=== PATIENT | male | born 1980 | race Caucasian/White ===

== ENCOUNTER 2019-03-25 22:15 | Inpatient (IN) | payer MEDICAID, OTHER ==
[~2019-03-25] VITALS: Ht 167.6 cm; Wt 53.1 kg
[2019-03-25 23:40] LABS: BASOPHILS % (AUTO) 0.6 % (0.0-2.0); EOSINOPHILS % (AUTO) 1.2 % (1.0-6.0); HEMATOCRIT 45.4 % (41-53); HEMOGLOBIN 15.4 g/dL (13.5-17.5); LYMPHOCYTES # (AUTO) 1.5 K/uL (1.0-4.8); LYMPHOCYTES % (AUTO) 17.2 % (22.0-44.0); MEAN CORPUSCULAR HEMOGLOBIN 30.6 pg (26.0-34.0); MEAN CORPUSCULAR HGB CONC 33.8 G/dL (31.0-37.0); MEAN CORPUSCULAR VOLUME 91 fL (80-100); MONOCYTES # (AUTO) 0.8 K/uL (0.1-1.0); MONOCYTES % (AUTO) 9.3 % (2.0-9.0); NEUTROPHILS # (AUTO) 6.1 K/uL (1.8-7.7); NEUTROPHILS % (AUTO) 71.7 % (40.0-70.0); PLATELET COUNT (AUTO) 294 K/uL (150-450); RED BLOOD CELL COUNT(AUTO) 5.02 MIL/uL (4.50-5.90); RED CELL DISTRIBUTION WIDTH 12.8 % (11.5-14.5)
[2019-03-25 23:48] LABS: ANION GAP 10 mmol/L (8-16); CARBON DIOXIDE 26 mmol/L (22-29); CHLORIDE 105 mmol/L (98-107); CREATININE 0.93 mg/dL (0.60-1.30); GLOMERULAR FILTR. RATE CALC > 60 mL/min (>60); GLUCOSE,RANDOM 91 mg/dL (70-110); POTASSIUM 3.3 mmol/L (3.5-5.1); SODIUM SERUM 141 mmol/L (136-145); UREA NITROGEN, BLOOD 11 mg/dL (7-18)
[2019-03-25 23:48] LABS: AMPHET/METH SCREEN,URINE NEGATIVE (NEGATIVE); BARBITURATE SCREEN, URINE NEGATIVE (NEGATIVE); BENZODIAZEPINES SCREEN,URINE NEGATIVE (NEGATIVE); CANNABINOID SCREEN,URINE POSITIVE (NEGATIVE); COCAINE SCREEN,URINE POSITIVE (NEGATIVE); METHADONE SCREEN, URINE NEGATIVE (NEGATIVE); OPIATE SCREEN,URINE NEGATIVE (NEGATIVE)
[2019-03-25 23:52] LABS: PHENCYCLIDINE SCREEN,URINE NEGATIVE (NEGATIVE)
[2019-03-25 23:55] LABS: ALANINE AMINOTRANSFERASE 16 U/L (12-78); ALBUMIN 4.1 g/dL (3.4-5.0); ALKALINE PHOSPHATASE 81 U/L (46-116); ASPARTATE AMINOTRANSFERASE 18 U/L (15-37); BILIRUBIN,TOTAL 1.2 mg/dL (0.1-1.0); LIPASE 149 U/L (73-393); TOTAL PROTEIN, SERUM 6.7 g/dL (6.4-8.2)
[2019-03-26] MEDS ORDERED: DiphenhydrAMINE HCL 25 MG CAPSULE PO ONE (00:15)
[2019-03-26] MEDS ORDERED: POTASSIUM CHLORIDE 20 MEQ ER TABLET PO ONE (02:45)
[2019-03-26] MEDS: LORazepam 2 MG TABLET PO PRN ×3 (04:13→13:48)
[2019-03-26 04:36] VITALS: BP 124/79
[2019-03-26 04:57] LABS: APPEARANCE,URINE CLOUDY (CLEAR); BILIRUBIN,URINE NEGATIVE (NEGATIVE); GLUCOSE, URINE (UA) NEGATIVE (NEGATIVE); KETONES,URINE NEGATIVE (NEGATIVE); LEUKOCYTE ESTERASE ,URINE NEGATIVE (NEGATIVE); NITRATE,URINE NEGATIVE (NEGATIVE); OCCULT BLOOD,URINE NEGATIVE (NEGATIVE); PH,URINE 6.5 (5.0-8.0); PROTEIN,URINE NEGATIVE (NEGATIVE)
[2019-03-26 09:03] VITALS: BP 104/63
[2019-03-26] MEDS ORDERED: ALBUTEROL SULFATE HFA 90 MCG/PUFF 8 GM INHALER IH PRN (10:45)
[2019-03-26] MEDS ORDERED: MAGNESIUM HYDROXIDE SUSPENSION 30 ML UDCUP PO PRN (10:45)
[2019-03-26] MEDS ORDERED: NICOTINE 14 MG/24 HOUR PATCH TD PRN (10:45)
[2019-03-26] MEDS ORDERED: LOPERAMIDE HCL 2 MG CAPSULE PO PRN (10:45)
[2019-03-26] MEDS ORDERED: MAG HYDROX/AL HYDROX/SIMETH ES 30 ML SUSPENSION UDCUP PO PRN (10:45)
[2019-03-26] MEDS ORDERED: ACETAMINOPHEN 325 MG TABLET PO PRN (10:45)
[2019-03-26] MEDS ORDERED: GuaiFENesin/D-METHORPHAN [SUGAR-FREE] 200-20MG/10 ML SYRUP UDCUP PO PRN (10:45)
[2019-03-26] MEDS ORDERED: CloNIDine HCL 0.1 MG TABLET PO PRN (10:45)
[2019-03-26] MEDS ORDERED: PETROLATUM,WHITE 28 GM JELLY TP PRN (10:45)
[2019-03-26] MEDS ORDERED: DOCUSATE SODIUM 100 MG CAPSULE PO PRN (10:45)
[2019-03-26] MEDS: BuPROPion HCL XL 150 MG ER TABLET PO SCH (12:28)
[2019-03-26] MEDS: HALOPERIDOL 5 MG TABLET PO PRN (13:48)
[2019-03-27 08:54] LABS: CHOL/HDL RATIO 2.3 (4.2-7.3)
[2019-03-27] MEDS: BuPROPion HCL XL 150 MG ER TABLET PO SCH (09:03)
[2019-03-27 09:46] VITALS: BP 119/60
[2019-03-27 15:31] LABS: POTASSIUM 3.5 mmol/L (3.5-5.1)
[2019-03-27 16:14] VITALS: BP 140/95
[2019-03-27] MEDS: LORazepam 2 MG TABLET PO PRN (17:52)
[2019-03-27] MEDS: ZOLPIDEM TARTRATE 10 MG TABLET PO PRN (20:08)
[2019-03-28] MEDS: BuPROPion HCL XL 150 MG ER TABLET PO SCH (08:39)
[2019-03-28] MEDS: LORazepam 2 MG TABLET PO PRN (09:47)
[2019-03-28] MEDS: HALOPERIDOL 5 MG TABLET PO PRN (09:47)
[2019-03-28] MEDS: ONDANSETRON HCL 4 MG TABLET PO PRN (10:31)
[2019-03-28] MEDS ORDERED: ARIPiprazole LAUROXIL,SUBMICR. ER SUSPENSION 675 MG/2.4 ML SYRINGE IM ONE (12:45)
[2019-03-28] MEDS ORDERED: ARIPiprazole LAUROXIL ER SUSPENSION 1064 MG/3.9 ML SYRINGE IM SCH (12:45)
[2019-03-28] MEDS ORDERED: ARIPiprazole 15 MG TABLET PO ONE (12:45)
[2019-03-28 13:03] VITALS: BP 140/77
[2019-03-28] MEDS ORDERED: ONDANSETRON HCL 4 MG/2 ML VIAL IM ONE (15:15)
[2019-03-28 18:14] VITALS: BP 100/68
[2019-03-28 19:14] VITALS: BP 128/55
[2019-03-28] MEDS: IBUPROFEN 400 MG TABLET PO PRN (19:14)
[2019-03-28] MEDS: ZOLPIDEM TARTRATE 10 MG TABLET PO PRN (20:10)
[2019-03-29] MEDS: HALOPERIDOL 5 MG TABLET PO PRN (08:09)
[2019-03-29] MEDS: ONDANSETRON HCL 4 MG TABLET PO PRN (08:09)
[2019-03-29] MEDS: BuPROPion HCL XL 150 MG ER TABLET PO SCH (08:09)
[2019-03-29] MEDS: LORazepam 2 MG TABLET PO PRN ×2 (08:09→18:23)
[2019-03-29 13:01] VITALS: BP 125/88
[2019-03-29 16:00] VITALS: BP 126/82
[2019-03-29] MEDS: IBUPROFEN 400 MG TABLET PO PRN (16:39)
[2019-03-30] MEDS: ZOLPIDEM TARTRATE 10 MG TABLET PO PRN ×2 (02:41→20:16)
[2019-03-30] MEDS: BuPROPion HCL XL 150 MG ER TABLET PO SCH (08:28)
[2019-03-30 09:14] VITALS: BP 131/90
[2019-03-30] MEDS: LORazepam 2 MG TABLET PO PRN (09:22)
[2019-03-30] MEDS: HALOPERIDOL 5 MG TABLET PO PRN (09:22)
[2019-03-30 10:35] VITALS: BP 128/86
[2019-03-30] MEDS: IBUPROFEN 400 MG TABLET PO PRN (10:53)
[2019-03-31] MEDS: HALOPERIDOL 5 MG TABLET PO PRN ×3 (02:07→16:11)
[2019-03-31] MEDS: LORazepam 2 MG TABLET PO PRN ×3 (02:07→16:11)
[2019-03-31] MEDS: BuPROPion HCL XL 150 MG ER TABLET PO SCH (08:33)
[2019-03-31 10:08] VITALS: BP 122/69
[2019-03-31 16:33] VITALS: BP 119/69
[2019-04-01] MEDS: ZOLPIDEM TARTRATE 10 MG TABLET PO PRN (02:02)
[2019-04-01 02:06] VITALS: BP 114/59
[2019-04-01] MEDS: BuPROPion HCL XL 150 MG ER TABLET PO SCH (08:11)
[2019-04-01] MEDS: LORazepam 2 MG TABLET PO PRN (08:11)
[2019-04-01 09:21] VITALS: BP 151/111
[2019-04-01] MEDS ORDERED: ARIP1064 IM (14:01)
[2019-04-01] MEDS ORDERED: BUPR-93 PO (14:03)
== END 2019-04-01 14:30 | disposition home or self-care (01) | DRG 753 ==
LOC: EMS 22:17 → 3EC 03-26 03:49
PROVIDERS: ADMIT Psychiatry & Neurology Psychiatry; ATTEND Psychiatry & Neurology Psychiatry
DX: F31.2 Bipolar disorder, current episode manic severe with psychotic features (principal); R45.851 Suicidal ideations; Z91.14 Patient's other noncompliance with medication regimen; E87.6 Hypokalemia; F14.90 Cocaine use, unspecified, uncomplicated; F17.200 Nicotine dependence, unspecified, uncomplicated; F41.9 Anxiety disorder, unspecified; Z85.038 Personal history of other malignant neoplasm of large intestine; Z88.5 Allergy status to narcotic agent; Z71.51 Drug abuse counseling and surveillance of drug abuser; Z71.6 Tobacco abuse counseling
CPT/HCPCS: 74019; 84132; G0480; J2405; Q0162

== ENCOUNTER 2024-03-04 12:07 | Inpatient (IN) | payer MEDICAID, OTHER ==
[~2024-03-04] VITALS: Ht 170.2 cm; Wt 55.4 kg
[~2024-03-04 12:07] MED LIST: ARIP10642 IM; BUPR-514 PO
[2024-03-04 15:29] LABS: BASOPHILS % (AUTO) 0.4 % (0.0-2.0); HEMATOCRIT 46.5 % (41-53); HEMOGLOBIN 15.9 g/dL (13.5-17.5); LYMPHOCYTES % (AUTO) 12.3 % (22.0-44.0); MEAN CORPUSCULAR HEMOGLOBIN 30.5 pg (26.0-34.0); MEAN CORPUSCULAR HGB CONC 34.2 G/dL (31.0-37.0); MEAN CORPUSCULAR VOLUME 89 fL (80-100); MONOCYTES # (AUTO) 0.5 K/uL (0.1-1.0); MONOCYTES % (AUTO) 6.4 % (2.0-9.0); NEUTROPHILS # (AUTO) 6.5 K/uL (1.8-7.7); NEUTROPHILS % (AUTO) 79.9 % (40.0-70.0); PLATELET COUNT (AUTO) 303 K/uL (150-450); RED BLOOD CELL COUNT(AUTO) 5.21 MIL/uL (4.50-5.90); WHITE BLOOD COUNT (AUTO) 8.1 K/uL (4.5-11.0)
[2024-03-04 15:33] LABS: COVID AG,FIA SOURCE NASAL SWAB
[2024-03-04 15:44] LABS: ANION GAP 11 mmol/L (8-16); CALCIUM, TOTAL 8.9 mg/dL (8.8-10.5); CARBON DIOXIDE 22 mmol/L (22-29); CHLORIDE 105 mmol/L (98-107); CREATININE 0.77 mg/dL (0.60-1.30); GLOMERULAR FILTR. RATE CALC > 60 mL/min (>60); GLUCOSE,RANDOM 96 mg/dL (70-110); POTASSIUM 3.9 mmol/L (3.5-5.1); SODIUM SERUM 138 mmol/L (136-145); UREA NITROGEN, BLOOD 7 mg/dL (7-18)
[2024-03-04 15:46] LABS: ALCOHOL, BLOOD (SERUM) < 3 mg/dL (0-10)
[2024-03-04 15:55] LABS: SARS-COV2 (COVID) ANTIGEN,FIA Negative (Negative)
[2024-03-04] MEDS: DiphenhydrAMINE HCL 50 MG/ML VIAL IM ONE (16:11)
[2024-03-04] MEDS: LORazepam 2 MG/ML VIAL IM ONE (16:11)
[2024-03-04] MEDS: HALOPERIDOL LACTATE 5 MG/ML VIAL IM ONE (16:12)
[2024-03-04 16:33] LABS: PH,URINE DRUG SCREEN 6.5 (5.0-8.0)
[2024-03-04 16:41] LABS: ALCOHOL, URINE DRUG SCREEN NEGATIVE (NEGATIVE); AMPHET/METH SCREEN,URINE POSITIVE (NEGATIVE); BARBITURATE SCREEN, URINE NEGATIVE (NEGATIVE); BENZODIAZEPINES SCREEN,URINE NEGATIVE (NEGATIVE); CANNABINOID SCREEN,URINE POSITIVE (NEGATIVE); COCAINE SCREEN,URINE POSITIVE (NEGATIVE); METHADONE SCREEN, URINE NEGATIVE (NEGATIVE); OPIATE SCREEN,URINE NEGATIVE (NEGATIVE); PHENCYCLIDINE SCREEN,URINE NEGATIVE (NEGATIVE)
[2024-03-05 00:10] VITALS: BP 108/86; PULSE 65; RESP 18; TEMP 97.9; O2SAT 98
[2024-03-05 09:18] VITALS: BP 105/56; PULSE 102; RESP 19; TEMP 97
[2024-03-05] MEDS ORDERED: MAGNESIUM HYDROXIDE SUSPENSION 30 ML UDCUP PO PRN (11:00)
[2024-03-05] MEDS ORDERED: OMEPRAZOLE 20 MG CAPSULE PO PRN (11:00)
[2024-03-05] MEDS ORDERED: DOCUSATE SODIUM 100 MG CAPSULE PO PRN (11:00)
[2024-03-05] MEDS ORDERED: BENZOCAINE/MENTHOL LOZENGE PO PRN (11:00)
[2024-03-05] MEDS ORDERED: PETROLATUM,WHITE 28 GM JELLY TP PRN (11:00)
[2024-03-05] MEDS ORDERED: MAG HYDROX/ALUMINUM HYD/SIMETH ES 30 ML SUSPENSION UDCUP PO PRN (11:00)
[2024-03-05] MEDS ORDERED: LOPERAMIDE HCL 2 MG CAPSULE PO PRN (11:00)
[2024-03-05] MEDS ORDERED: ACETAMINOPHEN 325 MG TABLET PO PRN (11:00)
[2024-03-05] MEDS ORDERED: CloNIDine HCL 0.1 MG TABLET PO PRN (11:00)
[2024-03-05] MEDS ORDERED: IBUPROFEN 600 MG TABLET PO PRN (11:00)
[2024-03-05] MEDS ORDERED: ALBUTEROL SULFATE HFA 90 MCG/PUFF 8 GM INHALER IH PRN (11:00)
[2024-03-05] MEDS ORDERED: BACITRACIN 28 GM OINTMENT TP PRN (11:00)
[2024-03-05] MEDS: LORazepam 2 MG TABLET PO PRN (11:20)
[2024-03-05 20:57] VITALS: BP 110/67; PULSE 79; RESP 18; TEMP 97.8; O2SAT 97
[2024-03-06] MEDS: BuPROPion HCL XL 150 MG ER TABLET PO SCH (08:07)
[2024-03-06] MEDS: ARIPiprazole 15 MG TABLET PO SCH (08:07)
[2024-03-06 09:25] VITALS: BP 140/85; PULSE 88; RESP 19; TEMP 97.5; O2SAT 99
[2024-03-06 21:14] VITALS: BP 116/72; PULSE 93; RESP 16; TEMP 97.9; O2SAT 98
[2024-03-06] MEDS: HALOPERIDOL 5 MG TABLET PO PRN (21:30)
[2024-03-06] MEDS: ZOLPIDEM TARTRATE 10 MG TABLET PO PRN (22:41)
[2024-03-07] MEDS ORDERED: ARIP15TA27 PO (09:56)
[2024-03-07] MEDS: ONDANSETRON HCL 4 MG TABLET PO PRN (12:05)
[2024-03-07 14:59] VITALS: BP 106/69; PULSE 78; RESP 18; TEMP 97.4; O2SAT 98
== END 2024-03-07 15:45 | disposition home or self-care (01) | DRG 750 ==
LOC: EMS 12:07 → EDH 21:01 → UNDOADMIN 21:01 → 3EI 22:25
PROVIDERS: ADMIT Psychiatry & Neurology Child & Adolescent Psychiatry; ATTEND Psychiatry & Neurology Child & Adolescent Psychiatry
PROC: GZ56ZZZ Individual Psychotherapy, Supportive (ICD-10-PCS; principal; 2024-03-05)
DX: F25.9 Schizoaffective disorder, unspecified (principal); R45.851 Suicidal ideations; F31.30 Bipolar disorder, current episode depressed, mild or moderate severity, unspecified; F10.10 Alcohol abuse, uncomplicated; F19.10 Other psychoactive substance abuse, uncomplicated; Z20.822 Contact with and (suspected) exposure to COVID-19; F41.9 Anxiety disorder, unspecified; I10 Essential (primary) hypertension; G47.00 Insomnia, unspecified; Z88.6 Allergy status to analgesic agent; Z87.891 Personal history of nicotine dependence; Z85.038 Personal history of other malignant neoplasm of large intestine; Z91.148 Patient's other noncompliance with medication regimen for other reason
CPT/HCPCS: 80048; 80307; 85025; 99285; G0480; J1200; J1630; J2060; Q0162